=== PATIENT | male | born 1975 | race Caucasian/White ===

== ENCOUNTER → 2016-11-12 | Outpatient (CLI) | payer OTHER | LOC: KOH-I 13:53 | DX: M54.9 Dorsalgia, unspecified (principal) | CPT/HCPCS: 72110; 74000 ==

== ENCOUNTER 2021-01-07 14:46 | Inpatient (IN) | payer OTHER ==
[~2021-01-07] VITALS: Ht 180.3 cm; Wt 174.6 kg
[2021-01-07 16:07] LABS: HEMOGLOBIN 14.6 gm/dl (14.0-17.5); RED BLOOD COUNT 4.74 M/UL (4.20-5.50); WHITE BLOOD COUNT 18.9 K/UL (4.5-11.0)
[2021-01-07 16:31] LABS: BUN/CREATININE RATIO 11 (0-10)
[2021-01-07] MEDS ORDERED: RAMIPRIL10 MG PO (20:21)
[2021-01-07] MEDS ORDERED: JANUVIA100 MG PO (20:21)
[2021-01-07] MEDS ORDERED: AMITRIPTYLINE H25 MG PO (20:21)
[2021-01-07] MEDS ORDERED: JARDIANCE10 MG PO (20:21)
[2021-01-07] MEDS ORDERED: VISTARIL 25 MG25 MG PO (20:22)
[2021-01-07] MEDS ORDERED: ATORVASTATIN CA40 MG PO (20:23)
[2021-01-07] MEDS ORDERED: GLUCOTROL 10 MG10 MG PO (20:23)
[2021-01-07] MEDS ORDERED: PIOGLITAZONE HC30 MG PO (20:23)
[2021-01-07] MEDS ORDERED: VITAMIN D375 MCG PO (20:26)
[2021-01-08 05:18] LABS: HEMOGLOBIN 13.7 gm/dl (14.0-17.5); RED BLOOD COUNT 4.72 M/UL (4.20-5.50)
[2021-01-08 05:53] LABS: BUN/CREATININE RATIO 22 (0-10)
[2021-01-09 07:56] LABS: HEMOGLOBIN 13.2 gm/dl (14.0-17.5); RED BLOOD COUNT 4.6 M/UL (4.20-5.50); WHITE BLOOD COUNT 24.4 K/UL (4.5-11.0)
[2021-01-09 08:15] LABS: BUN/CREATININE RATIO 27 (0-10)
[2021-01-10 05:21] LABS: HEMOGLOBIN 13.6 gm/dl (14.0-17.5); RED BLOOD COUNT 4.5 M/UL (4.20-5.50)
[2021-01-10 05:23] LABS: WHITE BLOOD COUNT 12.7 K/UL (4.5-11.0)
[2021-01-10 05:32] LABS: BUN/CREATININE RATIO 22 (0-10)
[2021-01-10] MEDS ORDERED: LEVOFLOXACIN750 MG PO (11:22)
[2021-01-11 11:17] LABS: ORGANISM ID Not indicated. (.); SPECIMEN SOURCE Urine (.); STREPTOCOCCUS PNEUMONIAE AG Negative (Negative)
== END 2021-01-10 12:40 | disposition home or self-care (01) | DRG 871 ==
LOC: ER1 14:46 → CDU 17:00 → MED SURG 4 17:00
PROVIDERS: Physician Assistant; Physician Assistant Medical; ADMIT Internal Medicine
DX: A41.9 Sepsis, unspecified organism (principal); J18.9 Pneumonia, unspecified organism; J96.01 Acute respiratory failure with hypoxia; Z68.43 Body mass index [BMI] 50.0-59.9, adult; Z20.822 Contact with and (suspected) exposure to COVID-19; E66.01 Morbid (severe) obesity due to excess calories; I10 Essential (primary) hypertension; E11.9 Type 2 diabetes mellitus without complications; E78.5 Hyperlipidemia, unspecified; F32.9 Major depressive disorder, single episode, unspecified; K76.0 Fatty (change of) liver, not elsewhere classified; Z82.49 Family history of ischemic heart disease and other diseases of the circulatory system
CPT/HCPCS: 0240U; 36415; 71045; 71250; 80048; 80053; 80202; 82803; 82962; 83036; 83605; 83735; 85025; 85027; 86140; 87040; 87070; 87077; 87081; 87186; 87205; 87278; 87899; 93005; 94760; 96374; 96375; 99285; J0456; J0692; J0696; J1100; J1650; J3370; J7030; J7070

== ENCOUNTER → 2021-02-04 | Outpatient (CLI) | payer OTHER ==
[~2021-02-04] MED LIST: AMITRIPTYLINE H25 MG PO; ATORVASTATIN CA40 MG PO; GLUCOTROL 10 MG10 MG PO; JANUVIA100 MG PO; JARDIANCE10 MG PO; LEVOFLOXACIN750 MG PO; PIOGLITAZONE HC30 MG PO; RAMIPRIL10 MG PO; VISTARIL 25 MG25 MG PO; VITAMIN D375 MCG PO
== END ==
LOC: RAD 14:49
DX: J18.9 Pneumonia, unspecified organism (principal); R91.8 Other nonspecific abnormal finding of lung field
CPT/HCPCS: 71046